=== PATIENT | female | born 1995 | race Caucasian/White ===

== ENCOUNTER 2022-04-12 07:04 | Emergency (ER) | payer MEDICAID ==
[~2022-04-12] VITALS: Ht 165.1 cm; Wt 91.0 kg
[2022-04-12 07:22] VITALS: BP 103/60
[2022-04-12 08:42] LABS: BASOPHILS % 0.3 % (0.0-2.0); HEMATOCRIT. 40.6 % (36.0-48.0); HEMOGLOBIN. 13.9 g/dL (12.0-16.0); LYMPHOCYTES % 11.7 % (20.0-50.0); MEAN CORPUSCULAR HEMOGLOBIN 29.9 pg (28.0-32.0); MEAN CORPUSCULAR VOLUME 87.8 fL (81.0-99.0); MEAN PLATELET VOLUME 7.8 fl (7.4-10.4); MONOCYTES % 3.1 % (2.0-8.0); NEUTROPHILS % 84.9 % (40.0-76.0); PLATELET 243 x1000/uL (130-400); RED BLOOD CELL COUNT 4.63 mill/uL (4.2-5.4); RED CELL DISTRIBUTION WIDTH 12.5 % (11.6-14.6)
[2022-04-12 08:54] LABS: CHLORIDE 104 mEq/L (98-107); HCG SCREEN NEGATIVE
== END 2022-04-12 11:22 | disposition left against medical advice (07) ==
LOC: ER 07:28
DX: Z53.21 Procedure and treatment not carried out due to patient leaving prior to being seen by health care provider (principal)
CPT/HCPCS: 36415; 80053; 84703; 85025

== ENCOUNTER 2022-09-12 06:07 | Emergency (ER) | payer MEDICAID ==
[~2022-09-12] VITALS: Ht 167.6 cm; Wt 75.0 kg
[2022-09-12] MEDS ORDERED: ONDANSETRON HCL 4MG/2ML INJ IV STA (06:32)
[2022-09-12] MEDS ORDERED: KETOROLAC 60MG/2ML VIAL IM STA (06:32)
[2022-09-12] MEDS ORDERED: FAMOTIDINE 20MG/2ML VIAL IV STA (06:32)
[2022-09-12] MEDS ORDERED: SODIUM CHLORIDE 0.9% 1,000 ML IV ONE (06:45)
[2022-09-12 07:06] LABS: BASOPHILS % 0.7 % (0.0-2.0); EOSINOPHILS % 0.1 % (0.0-5.0); HEMATOCRIT. 38.2 % (36.0-48.0); LYMPHOCYTES % 13.2 % (20.0-50.0); MEAN CORPUSCULAR HEMOGLOBIN 30.1 pg (28.0-32.0); MEAN CORPUSCULAR VOLUME 88.6 fL (81.0-99.0); MEAN PLATELET VOLUME 8.2 fl (7.4-10.4); MONOCYTES % 2.8 % (2.0-8.0); NEUTROPHILS % 83.2 % (40.0-76.0); PLATELET 210 x1000/uL (130-400); RED BLOOD CELL COUNT 4.31 mill/uL (4.2-5.4); RED CELL DISTRIBUTION WIDTH 12.8 % (11.6-14.6)
[2022-09-12 07:16] LABS: CHLORIDE 103 mEq/L (98-107)
[2022-09-12 07:21] LABS: HCG SCREEN NEGATIVE
[2022-09-12] MEDS ORDERED: ONDA4TAB50 PO ×2 (08:19)
[2022-09-12] MEDS ORDERED: OMEP20TA23 PO (08:19)
[2022-09-12] MEDS ORDERED: TOPUD PO (08:19)
[2022-09-12] MEDS ORDERED: METO-293 PO (08:27)
[2022-09-12] MEDS ORDERED: METOCLOPRAMIDE HCL 10MG TABLET PO ONE (08:30)
[2022-09-12 08:38] VITALS: BP 108/73
== END 2022-09-12 09:20 | disposition home or self-care (01) ==
LOC: ER 06:07
DX: R10.84 Generalized abdominal pain (principal); I50.9 Heart failure, unspecified; F17.210 Nicotine dependence, cigarettes, uncomplicated
CPT/HCPCS: 36415; 80053; 83690; 84703; 85025; 96361; 96372; 96374; 96375; 99284; J1885; J2405; J3490; J7030; J8597